=== PATIENT | male | born 1985 | race Hispanic/Latino ===

== ENCOUNTER 2023-10-18 12:55 | Emergency (ER) | payer SELFPAY ==
[2023-10-18] MEDS ORDERED: Acetaminophen 500 MG TAB ONE (13:28)
[2023-10-18] MEDS ORDERED: Ketorolac Tromethamine 30 MG (1 mL) VIAL ONE (14:28)
[2023-10-18 14:32] LABS: SARS-CoV-2 NAA Rapid Test Not Detected (NotDetected)
== END 2023-10-18 15:38 | disposition home or self-care (01) ==
LOC: ERS 12:55
DX: J10.1 Influenza due to other identified influenza virus with other respiratory manifestations (principal)
CPT/HCPCS: 96361; 96374; J1885